=== PATIENT | female | born 1965 | race Caucasian/White ===

== ENCOUNTER 2018-02-06 16:24 | Outpatient (CLI) | payer MEDICARE, MEDICAID | END 2018-02-06 16:25 | disposition home or self-care (01) | LOC: NAV ULT 16:24 | PROVIDERS: ATTEND Internal Medicine | DX: C34.90 Malignant neoplasm of unspecified part of unspecified bronchus or lung (principal); I08.2 Rheumatic disorders of both aortic and tricuspid valves | CPT/HCPCS: 93306 ==